=== PATIENT | male | born 1965 | race Caucasian/White ===

== ENCOUNTER 2017-07-02 08:42 | Inpatient (IN) | payer BC ==
[2017-07-02] MEDS ORDERED: Albuterol/Ipratropium 3.0-0.5 MG/3 ML Neb Soln NEB ONE (09:30)
[2017-07-02] MEDS ORDERED: Dextrose 5%-Lactated Ringers 1,000 ML IV SCH (09:30)
[2017-07-02] MEDS ORDERED: Celecoxib 200 MG Cap PO ONE (09:35)
[2017-07-02] MEDS ORDERED: Gabapentin 300 MG Cap PO ONE (09:35)
[2017-07-02] MEDS ORDERED: cefOXitin 2 GM in Sodium Chloride 0.9% 50 ML IV ONE (09:35)
[2017-07-02] MEDS ORDERED: Acetaminophen 500 MG Tab PO ONE (09:35)
[2017-07-02] MEDS ORDERED: Scopolamine 1.5 MG Transdermal Patch TOP SCH (09:35)
[2017-07-02] MEDS ORDERED: fentaNYL 250 MCG/5 ML SDV ONE ×2 (10:18→11:32)
[2017-07-02] MEDS ORDERED: Ondansetron 4 MG/2 ML SDV ONE (10:18)
[2017-07-02] MEDS ORDERED: Dexamethasone 4 MG/ML SDV ONE (10:18)
[2017-07-02] MEDS ORDERED: Propofol 200 MG/20 ML SDV ONE (10:18)
[2017-07-02] MEDS ORDERED: Rocuronium 50 MG/5 ML Vial ONE ×2 (10:18→11:32)
[2017-07-02] MEDS ORDERED: Succinylcholine 200 MG/10 ML MDV ONE (10:18)
[2017-07-02] MEDS ORDERED: Glycopyrrolate 0.2 MG/ML 5 ML MDV ONE (10:18)
[2017-07-02] MEDS ORDERED: Neostigmine Methylsulfate 1 MG/ML 5 ML Syringe ONE (10:18)
[2017-07-02] MEDS ORDERED: Lidocaine 2% 100 MG/5 ML Syringe IVPUSH ONE (10:30)
[2017-07-02] MEDS ORDERED: Ropivacaine 60 ML, Dexamethasone 8 MG, EPINEPHrine 0.4 MG, Sodium Chloride 0.9% 17.6 ML NERVRT SCH ×4 (10:30)
[2017-07-02] MEDS ORDERED: Ketamine 500 MG/5 ML MDV IV SCH (10:30)
[2017-07-02] MEDS ORDERED: cefOXitin 2 GM Vial ONE (10:30)
[2017-07-02] MEDS ORDERED: Lactated Ringers 1,000 ML ONE (11:32)
[2017-07-02] MEDS ORDERED: Labetalol 20 MG/4 ML Syringe ONE (11:41)
[2017-07-02] MEDS ORDERED: hydrOXYzine HCl 100 MG/2 ML SDV IM ONE (12:55)
[2017-07-02] MEDS ORDERED: Insulin Aspart 100 Units/ML 3 ML Pen SUBCUT ONE (13:45)
[2017-07-02] MEDS ORDERED: diphenhydrAMINE 50 MG/ML SDV IVPUSH PRN (15:00)
[2017-07-02] MEDS ORDERED: Labetalol 20 MG/4 ML Syringe IVPUSH PRN (15:00)
[2017-07-02] MEDS ORDERED: Ondansetron 4 MG/2 ML SDV IVPUSH PRN (15:00)
[2017-07-02] MEDS ORDERED: Albuterol/Ipratropium 3.0-0.5 MG/3 ML Neb Soln INH PRN (15:00)
[2017-07-02] MEDS ORDERED: hydrOXYzine HCl 100 MG/2 ML SDV IM PRN (15:00)
[2017-07-02] MEDS ORDERED: Glucagon,Human Recombinant 1 MG Vial IM PRN (15:00)
[2017-07-02] MEDS ORDERED: 50% Dextrose in Water 50 ML Syringe IVPUSH PRN (15:00)
[2017-07-02] MEDS ORDERED: Metoclopramide 10 MG/2 ML SDV IVPUSH PRN (15:00)
[2017-07-02] MEDS: Albuterol/Ipratropium 3.0-0.5 MG/3 ML Neb Soln INH SCH ×2 (15:17→21:25)
[2017-07-02] MEDS ORDERED: Meperidine PF 100 MG/ML Syringe IM ONE (15:40)
[2017-07-02] MEDS ORDERED: MVI, Adult with Vitamin K 10 ML, Thiamine 100 MG, Chromium/Copper/Mang/Selen/Zn 1 ML in... IV SCH ×4 (16:00)
[2017-07-02] MEDS: Acetaminophen Soln 650 MG/20.3 ML UD Cup PO SCH ×2 (16:01→21:17)
[2017-07-02] MEDS: Lidocaine 0.4%/D5W 2 GM/500 ML BAG IV SCH (16:04)
[2017-07-02] MEDS ORDERED: Pantoprazole 40 MG Vial IVPUSH SCH (16:30)
[2017-07-02] MEDS: Insulin Aspart 100 Units/ML 3 ML Pen SUBCUT PRN ×2 (17:57→21:19)
[2017-07-02] MEDS: cefOXitin 2 GM in Sodium Chloride 0.9% 50 ML IV SCH ×2 (18:00→21:22)
[2017-07-02] MEDS: Heparin Sodium 5,000 Units/ML Vial SUBCUT SCH (18:03)
[2017-07-02] MEDS: Gabapentin 250 MG/5 ML Solution ML 470 ML Bottle PO SCH (21:21)
[2017-07-03] MEDS: Dextrose 5%-Lactated Ringers 1,000 ML IV SCH ×2 (00:08→05:45)
[2017-07-03] MEDS: Heparin Sodium 5,000 Units/ML Vial SUBCUT SCH ×3 (01:37→17:25)
[2017-07-03] MEDS: Lidocaine 0.4%/D5W 2 GM/500 ML BAG IV SCH (02:52)
[2017-07-03] MEDS ORDERED: Iohexol 647 MG/ML 50 ML SDV PO STA (03:01)
[2017-07-03] MEDS: Acetaminophen Soln 650 MG/20.3 ML UD Cup PO SCH ×4 (03:56→22:05)
[2017-07-03] MEDS: cefOXitin 2 GM in Sodium Chloride 0.9% 50 ML IV SCH ×2 (03:57→11:20)
[2017-07-03] MEDS: Insulin Aspart 100 Units/ML 3 ML Pen SUBCUT PRN (04:33)
[2017-07-03] MEDS: Albuterol/Ipratropium 3.0-0.5 MG/3 ML Neb Soln INH SCH ×4 (07:33→20:49)
[2017-07-03] MEDS: Gabapentin 250 MG/5 ML Solution ML 470 ML Bottle PO SCH ×3 (08:24→20:48)
[2017-07-03] MEDS: Celecoxib 200 MG Cap PO SCH (08:25)
[2017-07-03] MEDS: SCOPOLAMINE PATCH CHECK TOP SCH (08:27)
--- NOTE | 2017-07-03 08:37 | CR ---
UGI wo KUB HISTORY: eval R -Y GBP FINDINGS: Limited upper GI series was obtained without fluoroscopy. Water-soluble contrast was admini stered orally. Immediate along with 15 minute delayed images were obtained. Small gastric pouch is de monstrated. Contrast passes readily through the gastrojejunostomy into loops of jejunum. No obstructi on is identified. There is no contrast extravasation. Surgical drain is noted left upper quadrant. IMPRESSION: No postoperative complication identified status post Matilda-en-Y gastric bypass.
[2017-07-03] MEDS ORDERED: Ondansetron 4 MG Tab.DIS PO PRN (09:11)
[2017-07-03] MEDS ORDERED: FLUoxetine 20 MG Cap PO SCH (09:15)
[2017-07-03] MEDS: Lactated Ringers 1,000 ML IV SCH (11:03)
[2017-07-03] MEDS: Hydrochlorothiazide 25 MG Tab PO SCH (11:05)
[2017-07-03] MEDS: Aspirin 81 MG Tab.Chew PO SCH (11:06)
[2017-07-03] MEDS: Losartan 50 MG Tab PO SCH (11:06)
[2017-07-03] MEDS: amLODIPine 5 MG Tab PO SCH (11:07)
[2017-07-03] MEDS: MVI, Adult with Vitamin K 10 ML, Thiamine 100 MG, Chromium/Copper/Mang/Selen/Zn 1 ML in... IV SCH ×4 (16:23)
[2017-07-03] MEDS: Pantoprazole 40 MG Delayed-Release Granules 1 Packet PO SCH (16:23)
[2017-07-03] MEDS: metFORMIN 500 MG Tab PO SCH (17:25)
[2017-07-03] MEDS: FLUoxetine 20 MG Cap PO SCH (17:27)
--- NOTE | 2017-07-03 18:54 | PN ---
DATE OF SERVICE: 07/03/2017 SUBJECTIVE: Torres is postop day 1, following a laparoscopic Matilda-en-Y gastric bypass surgery. His upper GI was normal. Blood sugars are 294 and 296. He has had an oral intake of 580, urine output was 1700. PHILIP drain put out 120 mL of a light pink serosanguineous drainage. REVIEW OF SYSTEMS: Remainder of review of systems negative for any pertinent positives and negatives. OBJECTIVE: GENERAL: Torres Ruelas is a 51-year-old male. He is alert and orientated, sitting up in a chair. VITAL SIGNS: TPR 98.9, 88, 18, blood pressure 130/65. HEENT: Negative. NECK: Supple. HEART: Regular rate and rhythm. LUNGS: Clear. ABDOMEN: Dressings dry and intact. Abdominal binder is on. EXTREMITIES: Without peripheral edema. ASSESSMENT: Status post Matilda-en-Y gastric bypass surgery, Jose-cut needle liver biopsy and small bowel resection. PLAN: 1. Discontinue D5LR IV. 2. Lactated Ringer's 100 mL per hour. Metformin 500 mg p.o. b.i.d. Change Tylenol from liquid to chewable. 3. Step-2 gastric bypass diet without cereal. Dressing off, may shower. 4. Communication order 3 med cups per hour, one every 20 minutes record at bedside. 5. Good pulmonary toilet. Ambulate at least 6 times daily. 6. Home medications started was amlodipine besylate 5 mg daily, Cozaar 100 mg p.o. daily, hydrochlorothiazide 25 mg daily, fluoxetine 40 mg daily, and aspirin 81 mg daily. 7. We will evaluate dietary consult to teach the patient to check blood sugars at home. He has not done this before. Hemoglobin A1c was 7.4, with starting the metformin, we will check CBC and CMP in a.m. to monitor kidney functions. We will evaluate p.r.n. or in a.m. Leela Mazariegos PA-C /[id number]
[2017-07-04] MEDS: Heparin Sodium 5,000 Units/ML Vial SUBCUT SCH ×3 (02:11→16:59)
[2017-07-04] MEDS: Lactated Ringers 1,000 ML IV SCH (02:11)
[2017-07-04] MEDS: Acetaminophen Soln 650 MG/20.3 ML UD Cup PO SCH ×4 (04:07→22:31)
[2017-07-04] MEDS: Celecoxib 200 MG Cap PO SCH (08:19)
[2017-07-04] MEDS ORDERED: Cyanocobalamin (Vitamin B12) 1,000 MCG/ML SDV IM ONE (09:00)
[2017-07-04] MEDS: Albuterol/Ipratropium 3.0-0.5 MG/3 ML Neb Soln INH SCH ×4 (09:02→22:31)
[2017-07-04] MEDS: Aspirin 81 MG Tab.Chew PO SCH (09:04)
[2017-07-04] MEDS: Losartan 50 MG Tab PO SCH (09:04)
[2017-07-04] MEDS: metFORMIN 500 MG Tab PO SCH (09:04)
[2017-07-04] MEDS: SCOPOLAMINE PATCH CHECK TOP SCH (09:05)
[2017-07-04] MEDS: Hydrochlorothiazide 25 MG Tab PO SCH (09:05)
[2017-07-04] MEDS: amLODIPine 5 MG Tab PO SCH (09:06)
[2017-07-04] MEDS: Gabapentin 250 MG/5 ML Solution ML 470 ML Bottle PO SCH ×3 (09:53→22:30)
[2017-07-04] MEDS: Pantoprazole 40 MG Delayed-Release Granules 1 Packet PO SCH (15:26)
[2017-07-04] MEDS: MVI, Adult with Vitamin K 10 ML, Thiamine 100 MG, Chromium/Copper/Mang/Selen/Zn 1 ML in... IV SCH ×4 (15:32)
[2017-07-04] MEDS: FLUoxetine 20 MG Cap PO SCH (16:53)
[2017-07-05] MEDS: Heparin Sodium 5,000 Units/ML Vial SUBCUT SCH ×2 (02:45→10:32)
[2017-07-05] MEDS: Acetaminophen Soln 650 MG/20.3 ML UD Cup PO SCH ×2 (03:49→10:33)
[2017-07-05] MEDS: Albuterol/Ipratropium 3.0-0.5 MG/3 ML Neb Soln INH SCH ×2 (07:22→11:03)
[2017-07-05] MEDS: Losartan 50 MG Tab PO SCH (08:36)
[2017-07-05] MEDS: Aspirin 81 MG Tab.Chew PO SCH (08:36)
[2017-07-05] MEDS: Celecoxib 200 MG Cap PO SCH (08:36)
[2017-07-05] MEDS: amLODIPine 5 MG Tab PO SCH (08:37)
[2017-07-05] MEDS: Gabapentin 250 MG/5 ML Solution ML 470 ML Bottle PO SCH (08:37)
[2017-07-05] MEDS: Hydrochlorothiazide 25 MG Tab PO SCH (08:37)
--- NOTE | 2017-07-05 18:24 | DISCH ---
FINAL DIAGNOSES: 1. Morbid obesity. 2. Marked hepatomegaly. 3. Foreshortened mesentery requiring small bowel resection to allow adequate mobility at jejunojejunostomy. 4. History of osteoarthritis. 5. History of obstructive sleep apnea, on CPAP. 6. Type 2 diabetes mellitus. 7. History of hypertension. OPERATIVE PROCEDURES: This was done on 07/02/2017; laparoscopic Matilda-en-Y gastric bypass with long limb gastroenterostomy, Jose-Cut needle liver biopsy, and small-bowel resection. HOSPITAL COURSE: This is a 51-year-old male presenting with longstanding morbid obesity and increasingly significant comorbidities. After preoperative evaluation and discussion, he wished to proceed with a gastric bypass procedure. This was done on the day of admission. His liver was quite strikingly enlarged and fatty infiltrated but no signs of cirrhosis. Small bowel mesentery was thickened and quite immobile. Given this, a portion of the biliopancreatic limb was resected which allowed more adequate mobility of jejunojejunostomy in order to get up to the gastric pouch with minimal tension. Postoperatively, the patient has done well and is tolerating step-2 diet. His blood sugars have come down and off the metformin, i.e. of any diabetic medication. In the last 24 hours, blood sugar has been between 140 and 160, and we will send him home off the metformin. Otherwise, he will be on his usual medications other than we will have him hold the Voltaren and instead use Celebrex 200 mg a day and hold the hydrochlorothiazide. He will be advised to remain on the omeprazole until he is off the Celebrex. He will be instructed to measure blood sugars 3 times a day at various times and take this for his appointment. His followup appointment will be with Leela Mazariegos at [facility] on 07/13/2017 at 9:30 a.m.
--- NOTE | 2017-07-06 09:01 | PN ---
DATE OF SERVICE: 07/04/2017 The patient is postoperative day #2 from laparoscopic Matilda-en-Y gastric bypass. Blood sugars came down to the 160s on 500 mg of metformin b.i.d. I think we will hold the metformin today and see how things trend. We will encourage increased oral intake, and he may be ready for discharge home tomorrow. Pascual Myrick MD /[id number]
--- NOTE | 2017-07-08 10:31 | OR ---
DATE OF PROCEDURE: 07/02/2017 PREOPERATIVE DIAGNOSIS: Morbid obesity. POSTOPERATIVE DIAGNOSES: 1. Morbid obesity. 2. Marked hepatomegaly. 3. Foreshortened mesentery secondary to fatty infiltration, requiring small bowel resection to allow adequate mobility of the jejunojejunostomy. OPERATIVE PROCEDURES: 1. Laparoscopic Matilda-en-Y gastric bypass with long limb gastroenterostomy (55920 ). 2. Jose-Cut needle liver biopsy (43477). 3. Small bowel resection (83234). ANESTHESIA: General. ASSISTANTS: Leela Mazariegos PA-C and CORONA Riggins. INDICATIONS FOR PROCEDURE: This is a 51-year-old presenting with longstanding morbid obesity and increasingly significant comorbidities. After preoperative evaluation and discussion, he wished to proceed with a gastric bypass procedure. Potential risks of the procedure including bleeding, infection, leaks from various GI tract closures, problems with bowel obstruction over time, as well as possibility of cardiopulmonary, septic, or hemorrhagic complications leading to were discussed, and the patient wishes to proceed. DETAILS OF PROCEDURE: The patient was taken to the operating room. After general endotracheal anesthesia was induced, he was placed in a lithotomy position. The orogastric tube was placed and the abdomen was prepped and draped. At 15 cm inferior, 5 cm left of xiphoid process, a transverse incision was made. The peritoneal cavity entered under direct vision with an Optiview trocar, inflated to 15 mmHg pressure with CO2. Laparoscope was then reinserted. No underlying trocar insertion site injuries were seen. Following this, bilateral subcostal transversus abdominis plane blocks were placed with direct visualization of the needle in the transversus abdominis plane, and injected with standard solution bilaterally. Following this, 5 additional trocars were placed across the upper and mid abdomen, and general exploration was undertaken. The patient was noted to have a quite marked hepatomegaly with liver volume being roughly 3 times normal and the liver grossly fatty infiltrated. Jose-Cut needle biopsies were obtained from the left lobe of the liver, and minimal bleeding from the biopsy sites was controlled with electrocautery. The omentum was then divided in the midline up to the level of the transverse colon. This allowed identification of the small bowel to the ligament of Treitz. The small bowel was traced out 200 cm distal to that point, where it was divided transversely with a TIA stapler. The small bowel was then traced out additional 150 cm, where the side- to-side enteroenterostomy was accomplished with internal firing of the Endo TIA 60 mm stapler. The common opening was then closed transversely with the same stapler, the angles anastomosed, and the mesenteric defect approximated with some 0 Ethibond stitch, along with fibrin sealant. Prior to the jejunojejunostomy, it was noted that the small bowel mesentery was extremely thickened and foreshortened. To facilitate adequate mobility of the jejunojejunostomy to allow a gastrojejunostomy with limited tension, roughly 10 cm of the biliopancreatic limb was initially resected, this with a TIA senior load, and the underlying mesentery being divided with Harmonic scalpel. The small-bowel specimen was sent as a separate specimen. The jejunojejunostomy was noted to be markedly more mobile than one would expect without resection, upon its completion. The Matilda limb was brought up in an antecolic manner to the level of the gastroesophageal junction, at this point, with minimal tension. The liver was then retracted anteriorly. The patient was noted to have no significant hiatal hernia. The gastrointestinal balloon catheter was then inflated to 15 mL and pulled up snugly against the EG junction. The gastric wall over the apex of the balloon was then marked with electrocautery and balloon catheter deflated and pulled up into the esophagus. The lesser omental tissue adjacent to the gastric cardia was then incised, allowing dissection behind the stomach at that level. Pouch formation was initiated in this case with a TIA black load, as the stomach was quite thickened. One additional black load was then used, and the remainder of the pouch was formed with purple loads up to and through the angle of His. Upon completion of the pouch, both staple lines were noted to be intact. The anvil of a 25-mm EEA stapler was then attached to a [place] sump-type tube, the latter was brought down through the mouth and taken out through a small opening in the gastric pouch, allowing the anvil likewise to be pulled onto within the gastric pouch. The divided end of the Matilda limb was then opened and the main body of the EEA stapler passed several centimeters into the lumen of the small bowel, brought up the anvil, united with it, thus creating the gastrojejunostomy. Upon removal of the stapler, double donuts of mucosa were noted within it. The small bowel was closed off with a vascular staple line. Gastrojejunostomy was reinforced with some 3-0 Vicryl seromuscular stitch, along with fibrin sealant. Leak test was accomplished with injection of 120 mL of air in the gastric pouch, while submerged in a cefoxitin-containing saline solution. No leaks were identified. Two Steve-Izquierdo drains were then placed adjacent to the gastrojejunostomy and taken out through subcostal trocar sites. With no further problems noted, trocars were removed, and the peritoneal cavity was deflated. The incision was then closed with some 4-0 Vicryl skin stitch, which was also used to affix the drain. The patient was taken to the recovery room in satisfactory condition. Physician assistant professor, Leela Mazariegos, played an essential role in assisting in this case, helping to position the patient, retract structures as needed, as well as suturing and cutting sutures when indicated. Her presence improved patient safety and decreased the operative time. Pascual Myrick MD /[id number]
== END 2017-07-05 11:15 | disposition home or self-care (01) | DRG 403 ==
LOC: JP.SDSSCHI 08:42 → JP.SDS 08:42 → EDSTATUS 11:00 → JP.2SS 13:15
PROVIDERS: ADMIT Surgery; ATTEND Surgery
PROC: 0D164ZA Bypass Stomach to Jejunum, Percutaneous Endoscopic Approach (ICD-10-PCS; principal; 2017-07-02)
PROC: 3E0T3BZ Introduction of Anesthetic Agent into Peripheral Nerves and Plexi, Percutaneous Approach (ICD-10-PCS; 2017-07-02)
PROC: 0FB24ZX Excision of Left Lobe Liver, Percutaneous Endoscopic Approach, Diagnostic (ICD-10-PCS; 2017-07-02)
PROC: 0DB94ZX Excision of Duodenum, Percutaneous Endoscopic Approach, Diagnostic (ICD-10-PCS; 2017-07-02)
DX: E66.01 Morbid (severe) obesity due to excess calories (principal); Z68.43 Body mass index [BMI] 50.0-59.9, adult; R16.0 Hepatomegaly, not elsewhere classified; K76.0 Fatty (change of) liver, not elsewhere classified; I12.9 Hypertensive chronic kidney disease with stage 1 through stage 4 chronic kidney disease, or unspecified chronic kidney disease; E11.22 Type 2 diabetes mellitus with diabetic chronic kidney disease; E11.65 Type 2 diabetes mellitus with hyperglycemia; N18.2 Chronic kidney disease, stage 2 (mild); Z79.84 Long term (current) use of oral hypoglycemic drugs; M17.0 Bilateral primary osteoarthritis of knee; E78.00 Pure hypercholesterolemia, unspecified; K21.9 Gastro-esophageal reflux disease without esophagitis; Z85.828 Personal history of other malignant neoplasm of skin; Z79.82 Long term (current) use of aspirin; Z88.5 Allergy status to narcotic agent; Z91.013 Allergy to seafood; Z88.8 Allergy status to other drugs, medicaments and biological substances; G47.33 Obstructive sleep apnea (adult) (pediatric); Z99.89 Dependence on other enabling machines and devices; K92.89 Other specified diseases of the digestive system
CPT/HCPCS: 36415; 74240; 74240-26; 80053; 82962; 83036; 85027; 86850; 86900; 86901; 88307; 88313; 94640; 94762; A9270-GY; C9113; J0171; J0330; J0694; J1100; J1644; J2001; J2175; J2405; J2704; J2710; J2795; J3010; J3410; J3411; J3420; J7030; J7042; J7050; J7120; J7620; Q9967